=== PATIENT | female | born 1955 | race African-American/Black ===

== ENCOUNTER 2021-11-18 08:34 | Emergency (ER) | payer MEDICAID ==
[2021-11-18 09:33] LABS: Bacteria/HPF None Seen HPF (None Seen); Bilirubin Negative (Negative); Blood, Urine Negative (Negative); Clarity Clear (Clear); Glucose, Urine (Dipstick) Normal (Negative); Ketone, Urine Negative (Negative); Leukocyte 75 Leu/uL (Negative); Nitrite Negative (Negative); Protein, Urine (Dipstick) Negative (Neg-Trace); RBC/HPF 0-3 HPF (0-3); Specific Gravity, Urine 1.012 (1.002-1.036); Squamous Epithelial 0-3 HPF (0-3); Urobilinogen Normal mg/dL (Less than 2); WBC/HPF 0-3 HPF (0-3)
[2021-11-18 09:35] LABS: #Eosinphils 0.1 thou/uL (0.0-0.7); #Lymphocytes 1.7 thou/uL (1.20-3.40); #Monocytes 0.5 thou/uL (0.11-0.59); #Neutrophils 1.5 thou/uL (1.40-6.50); %Basophils 0.9 % (0.0-1.0); %Eosinophils 2.1 % (0.0-10.0); %Lymphocytes 45.7 % (21.0-51.0); %Monocytes 12.1 % (0.0-10.0); %Neutrophils 39.3 % (42.0-75.0); Hemoglobin 12.3 g/dL (12.0-16.0); Mean Corpuscular HGB CONC 33.9 g/dL (32.0-36.0); Mean Corpuscular Hemoglobin 34.1 pg (27.0-31.0); Mean Platelet Volume 8.2 fL (7.4-10.4); Platelet Count 173 thou/uL (130-400); RBC Distribution Width 12.9 % (11.5-14.5); Red Blood Cell (RBC) Count 3.62 mill/uL (4.20-5.40); White Blood Cell (WBC) Count 3.7 thou/uL (4.8-10.8)
[2021-11-18 09:54] LABS: ALT (SGPT) 12 U/L (8-55); AST (SGOT) 26 U/L (5-34); Albumin 4.3 g/dL (3.4-4.8); Alkaline Phosphatase 98 U/L (40-110); Anion Gap 15 mmol/L (10-20); BUN (Urea Nitrogen) 29 mg/dL (9.8-20.1); Bilirubin, Total 0.3 mg/dL (0.2-1.2); Calc. Creatinine Clearance 0 mL/min (70-130); Calcium 9.4 mg/dL (7.8-10.44); Carbon Dioxide 26 mmol/L (23-31); Chloride 101 mmol/L (98-107); Globulin 4.5 g/dL (2.4-3.5); Glucose 92 mg/dL (80-115); Lipase 46 U/L (8-78); Potassium 3.9 mmol/L (3.5-5.1); Protein, Total 8.8 g/dL (5.8-8.1); Sodium 138 mmol/L (136-145)
== END 2021-11-18 12:24 | disposition home or self-care (01) ==
LOC: ERS 08:34
DX: R10.9 Unspecified abdominal pain (principal); E78.5 Hyperlipidemia, unspecified; E78.00 Pure hypercholesterolemia, unspecified; I10 Essential (primary) hypertension; Z79.899 Other long term (current) drug therapy
CPT/HCPCS: 36415; 74176; 80053; 81003; 81015; 83690; 85025; 87086

== ENCOUNTER 2022-08-30 11:10 | Emergency (ER) | payer OTHER, MEDICAID ==
[2022-08-30] MEDS ORDERED: methylPREDNISolone Sod Succ 40 MG VIAL ONE (15:20)
== END 2022-08-30 15:43 | disposition home or self-care (01) ==
LOC: ERS 11:10
DX: M17.0 Bilateral primary osteoarthritis of knee (principal); E78.00 Pure hypercholesterolemia, unspecified; I10 Essential (primary) hypertension; Y93.01 Activity, walking, marching and hiking; Z79.899 Other long term (current) drug therapy
CPT/HCPCS: 96372; J2920

== ENCOUNTER 2022-09-01 11:51 | Outpatient (CLI) | payer OTHER | END 2022-09-01 11:52 | disposition home or self-care (01) | LOC: BICRAD 11:51 | PROVIDERS: ATTEND Family Medicine | DX: M54.50 Low back pain, unspecified (principal); M16.12 Unilateral primary osteoarthritis, left hip; M47.816 Spondylosis without myelopathy or radiculopathy, lumbar region | CPT/HCPCS: 72100 ==

== ENCOUNTER 2023-01-25 10:03 | Outpatient (CLI) | payer OTHER, MEDICAID | END 2023-01-25 10:04 | disposition home or self-care (01) | LOC: BICMRI 10:03 | PROVIDERS: ATTEND Psychiatry & Neurology Neurology | DX: G40.409 Other generalized epilepsy and epileptic syndromes, not intractable, without status epilepticus (principal) | CPT/HCPCS: 70553 ==

== ENCOUNTER 2023-04-26 09:19 | Outpatient (CLI) | payer OTHER, MEDICAID | END 2023-04-26 09:20 | disposition home or self-care (01) | LOC: BICMAMMO 09:19 | PROVIDERS: ATTEND Family Medicine | DX: Z12.31 Encounter for screening mammogram for malignant neoplasm of breast (principal) | CPT/HCPCS: 77063; 77067 ==

== ENCOUNTER 2025-06-03 14:55 | Inpatient (IN) | payer OTHER ==
[2025-06-03] MEDS ORDERED: Furosemide 40 MG TAB ONE (16:28)
[2025-06-03 16:45] LABS: #Basophils Less than 0.03 10x3/uL (0.0-0.2); #Eosinophils Less than 0.03 10x3/uL (0.0-0.7); #Monocytes 1.00 10x3/uL (0.11-0.59); #Neutrophils 4.32 10x3/uL (1.40-6.50); %Basophils 0.0 % (0.0-1.0); %Eosinophils 0.2 % (0.0-10.0); %Lymphocytes 15.5 % (21.0-51.0); %Monocytes 15.8 % (0.0-10.0); %Neutrophils 68.0 % (42.0-75.0); Hematocrit 13.5 % (36.0-47.0); Hemoglobin 3.5 g/dL (12.0-16.0); Mean Corpuscular Hemoglobin 14.8 pg (27.0-31.0); Mean Corpuscular Volume 57.0 fL (78.0-98.0); Platelet Count 305 10x3/uL (130-400); Red Blood Cell (RBC) Count 2.37 mill/uL (4.20-5.40); White Blood Cell (WBC) Count 6.34 10x3/uL (4.8-10.8)
[2025-06-03 16:54] LABS: ALT (SGPT) 369 U/L (Less than 34); AST (SGOT) 683 U/L (11-34); Albumin 2.9 g/dL (3.1-4.5); Alkaline Phosphatase 288 U/L (40-110); Anion Gap 17 mmol/L (10-20); BUN (Urea Nitrogen) 29 mg/dL (9.8-20.1); Bilirubin, Total 2.2 mg/dL (0.3-1.2); Calc. Creatinine Clearance 0 mL/min (70-130); Calcium 8.5 mg/dL (7.8-10.44); Carbon Dioxide 17 mmol/L (23-31); Chloride 110 mmol/L (98-107); Globulin 4.5 g/dL (2.4-3.5); Glucose 99 mg/dL (83-110); Potassium 4.3 mmol/L (3.5-5.1); Sodium 140 mmol/L (136-145)
[2025-06-03 17:10] LABS: INR-International Normal Ratio 1.9; PTT 36.6 sec (22.9-36.1); Prothrombin Time 21.6 sec (12.0-14.7)
[2025-06-03 17:11] LABS: Anisocytosis MARKED = >30 cells HPF (0-5); Burr Cells MODERATE= 6-15 cells HPF (0-1); Macrocytosis MODERATE=16-30 cells HPF (0-5); Platelet Adequacy Comment Platelets Normal; Poikilocytosis SLIGHT = 6-15 cells HPF (0-5); Polychromasia SLIGHT = 2-3 cells HPF (0-2); Reflex for Review?? YES; Target Cells MODERATE= 6-15 cells HPF (0-1)
[2025-06-03 17:23] LABS: Iron 17 ug/dL (50-170); Iron Binding Capacity, Total 340 mcg/dL (265-497)
[2025-06-03 20:46] LABS: Carbamazepine-Tegretol 11.9 ug/mL (4.0-12.0)
[2025-06-03 22:24] LABS: Hep A IgM AB NONREACTIVE (NonReactive); Hep A IgM S/CO 0.24 S/CO (0-0.79); Hep B Core IgM Index 0.10 S/CO (0-0.79); Hep B Surf Ag NONREACTIVE S/CO (NonReactive); Hep C IgG Ab NONREACTIVE S/CO (NonReactive); Hep C Index 0.23 S/CO (0-0.79)
[2025-06-04 09:29] LABS: #Basophils Less than 0.03 10x3/uL (0.0-0.2); #Eosinophils Less than 0.03 10x3/uL (0.0-0.7); #Monocytes 0.96 10x3/uL (0.11-0.59); #Neutrophils 4.20 10x3/uL (1.40-6.50); %Basophils 0.3 % (0.0-1.0); %Eosinophils 0.0 % (0.0-10.0); %Lymphocytes 13.3 % (21.0-51.0); %Monocytes 16.0 % (0.0-10.0); %Neutrophils 69.9 % (42.0-75.0); Hematocrit 23.6 % (36.0-47.0); Hemoglobin 7.2 g/dL (12.0-16.0); Mean Corpuscular Hemoglobin 20.2 pg (27.0-31.0); Mean Corpuscular Volume 66.3 fL (78.0-98.0); Platelet Count 257 10x3/uL (130-400); Red Blood Cell (RBC) Count 3.56 mill/uL (4.20-5.40); White Blood Cell (WBC) Count 6.01 10x3/uL (4.8-10.8)
[2025-06-04 09:37] LABS: ALT (SGPT) 369 U/L (Less than 34); AST (SGOT) 692 U/L (11-34); Albumin 2.6 g/dL (3.1-4.5); Alkaline Phosphatase 267 U/L (40-110); Anion Gap 15 mmol/L (10-20); BUN (Urea Nitrogen) 28 mg/dL (9.8-20.1); Bilirubin, Total 3.1 mg/dL (0.3-1.2); Calc. Creatinine Clearance 20 mL/min (70-130); Calcium 8.2 mg/dL (7.8-10.44); Carbon Dioxide 17 mmol/L (23-31); Chloride 112 mmol/L (98-107); Globulin 4.0 g/dL (2.4-3.5); Glucose 78 mg/dL (83-110); Potassium 3.7 mmol/L (3.5-5.1); Sodium 140 mmol/L (136-145)
[2025-06-04 10:03] LABS: Burr Cells MODERATE= 6-15 cells HPF (0-1); Microcytosis MODERATE=15-30 cells HPF (0-5); Platelet Adequacy Comment Platelets Normal; Poikilocytosis MARKED = >30 cells HPF (0-5); Polychromasia MARKED = >4 cells HPF (0-2); Reflex for Review?? YES; Schistocytes MODERATE= 6-15 cells HPF (0-1); Spherocytes SLIGHT = 1-5 cells HPF (None Seen)
[2025-06-04 16:21] LABS: Hematocrit 25.5 % (36.0-47.0); Hemoglobin 7.6 g/dL (12.0-16.0)
[2025-06-04 19:26] LABS: Bacteria/HPF None Seen HPF (None Seen); CAUTI Indications for Culture Pelvic or flank pain; Glucose, Urine (Dipstick) Normal (Negative); Leukocyte Negative Leu/uL (Negative); Protein, Urine (Dipstick) 50 mg/dL (Neg-Trace); RBC/HPF 0-3 HPF (0-3); Specific Gravity, Urine 1.011 (1.002-1.036)
[2025-06-04 19:38] LABS: Urine Culture Reflex No No
[2025-06-04 23:55] LABS: Hematocrit 31.4 % (36.0-47.0); Hemoglobin 9.7 g/dL (12.0-16.0)
[2025-06-05 01:27] LABS: Hematocrit 29.9 % (36.0-47.0); Hemoglobin 9.3 g/dL (12.0-16.0)
[2025-06-05 04:46] LABS: #Basophils 0.04 10x3/uL (0.0-0.2); #Eosinophils Less than 0.03 10x3/uL (0.0-0.7); #Monocytes 1.05 10x3/uL (0.11-0.59); #Neutrophils 5.45 10x3/uL (1.40-6.50); %Basophils 0.5 % (0.0-1.0); %Eosinophils 0.1 % (0.0-10.0); %Lymphocytes 12.4 % (21.0-51.0); %Monocytes 14.0 % (0.0-10.0); %Neutrophils 72.6 % (42.0-75.0); Hematocrit 29.1 % (36.0-47.0); Hemoglobin 9.3 g/dL (12.0-16.0); Mean Corpuscular Hemoglobin 22.0 pg (27.0-31.0); Mean Corpuscular Volume 68.8 fL (78.0-98.0); Platelet Count 267 10x3/uL (130-400); Red Blood Cell (RBC) Count 4.23 mill/uL (4.20-5.40); White Blood Cell (WBC) Count 7.51 10x3/uL (4.8-10.8)
[2025-06-05 05:04] LABS: ALT (SGPT) 435 U/L (Less than 34); AST (SGOT) 848 U/L (11-34); Albumin 2.4 g/dL (3.1-4.5); Alkaline Phosphatase 278 U/L (40-110); Anion Gap 15 mmol/L (10-20); BUN (Urea Nitrogen) 30 mg/dL (9.8-20.1); Bilirubin, Total 4.9 mg/dL (0.3-1.2); Calc. Creatinine Clearance 18 mL/min (70-130); Calcium 8.0 mg/dL (7.8-10.44); Carbon Dioxide 17 mmol/L (23-31); Chloride 110 mmol/L (98-107); Globulin 3.9 g/dL (2.4-3.5); Glucose 64 mg/dL (83-110); Potassium 3.6 mmol/L (3.5-5.1); Sodium 138 mmol/L (136-145)
[2025-06-05] MEDS: Furosemide 40 MG (4 mL) VIAL SLOW IVP SCH ×3 (09:21→23:47)
[2025-06-05 09:41] LABS: ALT (SGPT) 492 U/L (Less than 34); AST (SGOT) 964 U/L (11-34); Albumin 2.6 g/dL (3.1-4.5); Alkaline Phosphatase 304 U/L (40-110); Anion Gap 15 mmol/L (10-20); BUN (Urea Nitrogen) 30 mg/dL (9.8-20.1); Bilirubin, Total 5.7 mg/dL (0.3-1.2); Calc. Creatinine Clearance 17 mL/min (70-130); Calcium 8.2 mg/dL (7.8-10.44); Carbon Dioxide 17 mmol/L (23-31); Chloride 109 mmol/L (98-107); Globulin 4.4 g/dL (2.4-3.5); Glucose 126 mg/dL (83-110); Potassium 3.6 mmol/L (3.5-5.1); Sodium 137 mmol/L (136-145)
[2025-06-05 09:53] LABS: INR-International Normal Ratio 2.1; Prothrombin Time 23.4 sec (12.0-14.7)
[2025-06-05] MEDS: Albumin 25% 25 GM (100 mL) BOT IVPB SCH ×2 (11:38→23:32)
[2025-06-05] MEDS: Sodium Ferric Gluconate 250 MG in Sodium Chloride 0.9% 250 ML 250 ML IVPB SCH (11:39)
[2025-06-05 12:06] LABS: INR-International Normal Ratio 2.5; Prothrombin Time 27.2 sec (12.0-14.7)
[2025-06-05 12:07] LABS: Fibrinogen 275 mg/dL (253-463); PTT 34.4 sec (22.9-36.1)
[2025-06-05 12:17] LABS: D-Dimer Test 6.67 mcg/mL (0.27-0.43); Platelet Count 215 10x3/uL (130-400)
[2025-06-05 15:36] LABS: Sodium, Urine 123.0 mmol/L (Not Available); Urea Nitrogen, Random Urine 169.0 mg/dl
[2025-06-05] MEDS: GoLYTELY 4,000 ml Bottle PO SCH (17:22)
[2025-06-05 19:28] LABS: ALT (SGPT) 473 U/L (Less than 34); AST (SGOT) 843 U/L (11-34); Albumin 3.1 g/dL (3.1-4.5); Alkaline Phosphatase 275 U/L (40-110); Anion Gap 15 mmol/L (10-20); BUN (Urea Nitrogen) 29 mg/dL (9.8-20.1); Bilirubin, Total 5.8 mg/dL (0.3-1.2); CK (CPK) 1733 U/L (29-168); Calc. Creatinine Clearance 16 mL/min (70-130); Calcium 8.6 mg/dL (7.8-10.44); Carbon Dioxide 17 mmol/L (23-31); Chloride 109 mmol/L (98-107); Globulin 4.3 g/dL (2.4-3.5); Glucose 108 mg/dL (83-110); Potassium 3.3 mmol/L (3.5-5.1); Sodium 138 mmol/L (136-145)
[2025-06-05] MEDS: Transdermal Patch Removal TOP SCH (23:48)
[2025-06-06 05:56] LABS: ALT (SGPT) 433 U/L (Less than 34); AST (SGOT) 838 U/L (11-34); Albumin 3.0 g/dL (3.1-4.5); Alkaline Phosphatase 239 U/L (40-110); Anion Gap 17 mmol/L (10-20); BUN (Urea Nitrogen) 29 mg/dL (9.8-20.1); Bilirubin, Total 6.9 mg/dL (0.3-1.2); CK (CPK) 1608 U/L (29-168); Calc. Creatinine Clearance 15 mL/min (70-130); Calcium 8.5 mg/dL (7.8-10.44); Carbon Dioxide 19 mmol/L (23-31); Chloride 108 mmol/L (98-107); Globulin 3.5 g/dL (2.4-3.5); Glucose 84 mg/dL (83-110); Potassium 2.9 mmol/L (3.5-5.1); Sodium 141 mmol/L (136-145)
[2025-06-06 05:59] LABS: #Basophils 0.05 10x3/uL (0.0-0.2); #Eosinophils 0.04 10x3/uL (0.0-0.7); #Monocytes 1.32 10x3/uL (0.11-0.59); #Neutrophils 7.40 10x3/uL (1.40-6.50); %Basophils 0.5 % (0.0-1.0); %Eosinophils 0.4 % (0.0-10.0); %Lymphocytes 10.2 % (21.0-51.0); %Monocytes 13.3 % (0.0-10.0); %Neutrophils 74.3 % (42.0-75.0); Hematocrit 28.1 % (36.0-47.0); Hemoglobin 9.0 g/dL (12.0-16.0); Mean Corpuscular Hemoglobin 21.6 pg (27.0-31.0); Mean Corpuscular Volume 67.5 fL (78.0-98.0); Platelet Count 211 10x3/uL (130-400); Red Blood Cell (RBC) Count 4.16 mill/uL (4.20-5.40); White Blood Cell (WBC) Count 9.95 10x3/uL (4.8-10.8)
[2025-06-06 06:16] LABS: INR-International Normal Ratio 2.2; Prothrombin Time 24.4 sec (12.0-14.7)
[2025-06-06] MEDS: Potassium Chloride 20 MEQ in Premix 1 BAG IVPB SCH (06:19)
[2025-06-06 06:47] LABS: Magnesium 2.0 mg/dL (1.6-2.6); Uric Acid 6.1 mg/dL (2.5-6.2)
[2025-06-06] MEDS: Sodium Ferric Gluconate 250 MG in Sodium Chloride 0.9% 250 ML 250 ML IVPB SCH (14:31)
[2025-06-06] MEDS: Potassium Phosphate 30 MMOL in Sodium Chloride 0.9% 250 ML 250 ML IVPB SCH (14:41)
[2025-06-06] MEDS: Furosemide 40 MG (4 mL) VIAL SLOW IVP SCH (16:15)
[2025-06-06 17:11] LABS: Anion Gap 15 mmol/L (10-20); BUN (Urea Nitrogen) 28 mg/dL (9.8-20.1); Calc. Creatinine Clearance 16 mL/min (70-130); Calcium 8.3 mg/dL (7.8-10.44); Carbon Dioxide 21 mmol/L (23-31); Chloride 105 mmol/L (98-107); Glucose 133 mg/dL (83-110); Potassium 3.2 mmol/L (3.5-5.1); Sodium 138 mmol/L (136-145)
[2025-06-06] MEDS: Benzonatate 100 MG CAP PO PRN (19:20)
[2025-06-07 05:30] LABS: #Basophils 0.03 10x3/uL (0.0-0.2); #Eosinophils 0.04 10x3/uL (0.0-0.7); #Monocytes 1.54 10x3/uL (0.11-0.59); #Neutrophils 8.90 10x3/uL (1.40-6.50); %Basophils 0.3 % (0.0-1.0); %Eosinophils 0.3 % (0.0-10.0); %Lymphocytes 10.9 % (21.0-51.0); %Monocytes 13.0 % (0.0-10.0); %Neutrophils 74.8 % (42.0-75.0); Hematocrit 28.0 % (36.0-47.0); Hemoglobin 8.7 g/dL (12.0-16.0); Mean Corpuscular Hemoglobin 21.8 pg (27.0-31.0); Mean Corpuscular Volume 70.2 fL (78.0-98.0); Platelet Count 217 10x3/uL (130-400); Red Blood Cell (RBC) Count 3.99 mill/uL (4.20-5.40); White Blood Cell (WBC) Count 11.89 10x3/uL (4.8-10.8)
[2025-06-07 05:38] LABS: INR-International Normal Ratio 2.0; PTT 53.9 sec (22.9-36.1); Prothrombin Time 22.4 sec (12.0-14.7)
[2025-06-07 05:44] LABS: ALT (SGPT) 449 U/L (Less than 34); AST (SGOT) 843 U/L (11-34); Albumin 2.9 g/dL (3.1-4.5); Alkaline Phosphatase 218 U/L (40-110); Anion Gap 14 mmol/L (10-20); BUN (Urea Nitrogen) 25 mg/dL (9.8-20.1); Bilirubin, Total 8.7 mg/dL (0.3-1.2); Calc. Creatinine Clearance 16 mL/min (70-130); Calcium 8.2 mg/dL (7.8-10.44); Carbon Dioxide 23 mmol/L (23-31); Chloride 105 mmol/L (98-107); Globulin 3.3 g/dL (2.4-3.5); Glucose 100 mg/dL (83-110); Potassium 3.5 mmol/L (3.5-5.1); Sodium 138 mmol/L (136-145)
[2025-06-07] MEDS: Albumin 25% 25 GM (100 mL) BOT IVPB SCH (07:09)
[2025-06-07] MEDS: Potassium Bicarbonate/Cit Ac 20 MEQ TAB PO SCH (07:09)
[2025-06-07 07:21] LABS: CK (CPK) 1374 U/L (29-168); Magnesium 1.9 mg/dL (1.6-2.6)
[2025-06-07 11:26] LABS: Bilirubin, Direct 6.0 mg/dL (0.1-0.3); Bilirubin, Total 7.9 mg/dL (0.3-1.2)
[2025-06-07] MEDS: Furosemide 20 MG (2 mL) VIAL SLOW IVP SCH (18:02)
[2025-06-07] MEDS: Melatonin 3 MG TAB PO PRN (20:02)
[2025-06-08 02:48] LABS: Actual Bicarbonate (HCO3a) 19.4 mEq/L (22-28); Base Excess (BEa) -2.3 mEq/L (-2.0 to +3.0); Calcium, Ionized (arterial) 1.11 mmol/L (1.12-1.30); Hematocrit-ABG 32 % (36.0-47.0); Hemoglobin (Hb) 10.9 g/dL (12.0-16.0); Potassium - ABG Lab 3.15 mmol/L (3.70-5.30); pH, Arterial 7.516 (7.35-7.45)
[2025-06-08 02:50] LABS: Puncture Site Right Radial artery
[2025-06-08] MEDS: dilTIAZem 25 MG/5 ML VIAL SLOW IVP SCH (03:20)
[2025-06-08 05:34] LABS: Actual Bicarbonate (HCO3a) 20.6 mEq/L (22-28); Base Excess (BEa) -2.4 mEq/L (-2.0 to +3.0); CO2 Tension 29.7 mmHg (35.0-45.0); Calcium, Ionized (arterial) 1.11 mmol/L (1.12-1.30); Hematocrit-ABG 31 % (36.0-47.0); Hemoglobin (Hb) 10.6 g/dL (12.0-16.0); O2 Tension (PaO2), arterial 85.9 mmHg (> 70.0); Potassium - ABG Lab 3.11 mmol/L (3.70-5.30); pH, Arterial 7.459 (7.35-7.45)
[2025-06-08 05:36] LABS: Puncture Site Right Brachial art
[2025-06-08 05:37] LABS: ALV-art Gradient 162.175 mmHg (0-20)
[2025-06-08 06:47] LABS: #Basophils Less than 0.03 10x3/uL (0.0-0.2); #Eosinophils Less than 0.03 10x3/uL (0.0-0.7); #Monocytes 1.41 10x3/uL (0.11-0.59); #Neutrophils 12.46 10x3/uL (1.40-6.50); %Basophils 0.1 % (0.0-1.0); %Eosinophils 0.1 % (0.0-10.0); %Lymphocytes 5.2 % (21.0-51.0); %Monocytes 9.5 % (0.0-10.0); %Neutrophils 84.4 % (42.0-75.0); Hematocrit 29.5 % (36.0-47.0); Hemoglobin 9.4 g/dL (12.0-16.0); Mean Corpuscular Hemoglobin 22.2 pg (27.0-31.0); Mean Corpuscular Volume 69.6 fL (78.0-98.0); Platelet Count 177 10x3/uL (130-400); Red Blood Cell (RBC) Count 4.24 mill/uL (4.20-5.40); White Blood Cell (WBC) Count 14.78 10x3/uL (4.8-10.8)
[2025-06-08 06:59] LABS: ALT (SGPT) 400 U/L (Less than 34); AST (SGOT) 625 U/L (11-34); Albumin 3.2 g/dL (3.1-4.5); Alkaline Phosphatase 198 U/L (40-110); Anion Gap 14 mmol/L (10-20); BUN (Urea Nitrogen) 23 mg/dL (9.8-20.1); Bilirubin, Total 9.8 mg/dL (0.3-1.2); CK (CPK) 1290 U/L (29-168); Calc. Creatinine Clearance 17 mL/min (70-130); Calcium 8.6 mg/dL (7.8-10.44); Carbon Dioxide 20 mmol/L (23-31); Chloride 105 mmol/L (98-107); Globulin 3.4 g/dL (2.4-3.5); Glucose 100 mg/dL (83-110); Magnesium 1.8 mg/dL (1.6-2.6); Potassium 3.1 mmol/L (3.5-5.1); Sodium 136 mmol/L (136-145)
[2025-06-08 07:01] LABS: INR-International Normal Ratio 1.9; Prothrombin Time 22.3 sec (12.0-14.7)
[2025-06-08 07:02] LABS: PTT 50.7 sec (22.9-36.1)
[2025-06-08 07:53] LABS: Anisocytosis MARKED = >30 cells HPF (0-5); Burr Cells MODERATE= 6-15 cells HPF (0-1); Macrocytosis MODERATE=16-30 cells HPF (0-5); Microcytosis SLIGHT = 6-15 cells HPF (0-5); Ovalocytes SLIGHT = 2-5 cells HPF (0-1); Platelet Adequacy Comment Platelets Normal; Poikilocytosis MODERATE=16-30 cells HPF (0-5); Polychromasia MODERATE = 3-4 cells HPF (0-2); Schistocytes MODERATE= 6-15 cells HPF (0-1); Target Cells SLIGHT = 2-5 cells HPF (0-1)
[2025-06-08] MEDS: Amiodarone 150 MG, Admixture Fee 1 EACH in Dextrose 5% in Water 100 ML IVPB SCH (09:48)
[2025-06-08] MEDS: Potassium Bicarbonate/Cit Ac 20 MEQ TAB PO SCH (09:59)
[2025-06-08] MEDS: Bumetanide 1 MG/4 ML VIAL IVP SCH (09:59)
[2025-06-08] MEDS: Spironolactone 25 MG TAB PO SCH (10:00)
[2025-06-08] MEDS: Magnesium Oxide 400 MG TAB PO SCH (10:00)
[2025-06-08 13:38] LABS: Kappa Lambda Light Chain Ratio 0.95 (0.26-1.65)
[2025-06-08] MEDS: Pantoprazole 40 MG VIAL IVP SCH (14:57)
[2025-06-08 15:38] LABS: Hemoglobin A2 2.2 % (1.8-3.2); Hemoglobin F 0 % (0.0-2.0); Hemoglobin S 0.0 % (0.0)
[2025-06-09 04:45] LABS: #Basophils Less than 0.03 10x3/uL (0.0-0.2); #Eosinophils Less than 0.03 10x3/uL (0.0-0.7); #Monocytes 1.55 10x3/uL (0.11-0.59); #Neutrophils 11.20 10x3/uL (1.40-6.50); %Basophils 0.1 % (0.0-1.0); %Eosinophils 0.0 % (0.0-10.0); %Lymphocytes 7.2 % (21.0-51.0); %Monocytes 11.2 % (0.0-10.0); %Neutrophils 80.9 % (42.0-75.0); Hematocrit 29.9 % (36.0-47.0); Hemoglobin 9.6 g/dL (12.0-16.0); Mean Corpuscular Hemoglobin 22.4 pg (27.0-31.0); Mean Corpuscular Volume 69.9 fL (78.0-98.0); Platelet Count 194 10x3/uL (130-400); Red Blood Cell (RBC) Count 4.28 mill/uL (4.20-5.40); White Blood Cell (WBC) Count 13.85 10x3/uL (4.8-10.8)
[2025-06-09 04:47] LABS: ALT (SGPT) 337 U/L (Less than 34); AST (SGOT) 488 U/L (11-34); Albumin 2.7 g/dL (3.1-4.5); Alkaline Phosphatase 170 U/L (40-110); Anion Gap 37 mmol/L (10-20); BUN (Urea Nitrogen) 23 mg/dL (9.8-20.1); Bilirubin, Total 11.0 mg/dL (0.3-1.2); Calc. Creatinine Clearance 18 mL/min (70-130); Calcium 7.9 mg/dL (7.8-10.44); Carbon Dioxide 19 mmol/L (23-31); Chloride 96 mmol/L (98-107); Globulin 3.6 g/dL (2.4-3.5); Glucose 107 mg/dL (83-110); Potassium 4.5 mmol/L (3.5-5.1); Sodium 147 mmol/L (136-145)
[2025-06-09 06:03] LABS: INR-International Normal Ratio 1.6; PTT 49.5 sec (22.9-36.1); Prothrombin Time 19.6 sec (12.0-14.7)
[2025-06-09 08:29] LABS: CK (CPK) 648 U/L (29-168); Magnesium 2.1 mg/dL (1.6-2.6)
[2025-06-09] MEDS: Amiodarone 200 MG TAB PO SCH (10:00)
[2025-06-09] MEDS: Amiodarone 150 MG, Admixture Fee 1 EACH in Dextrose 5% in Water 100 ML IVPB SCH (10:29)
[2025-06-09] MEDS: Sodium Bicarbonate Tab 325 MG TAB PO SCH (10:36)
[2025-06-09] MEDS: Pantoprazole 40 MG VIAL IVP SCH (10:37)
[2025-06-09 11:46] LABS: ANA Symphony (Qualitative) Equivocal: See Note (Negative); ANA Symphony (Quantitative) 0.8 Ratio (< 0.7 Negative); dsDNA IgG Antibody 25.0 IU/mL (<10 Negative)
[2025-06-09 12:07] LABS: ALT (SGPT) 346 U/L (Less than 34); AST (SGOT) 432 U/L (11-34); Albumin 3.0 g/dL (3.1-4.5); Alkaline Phosphatase 196 U/L (40-110); Anion Gap 16 mmol/L (10-20); BUN (Urea Nitrogen) 25 mg/dL (9.8-20.1); Bilirubin, Direct 8.5 mg/dL (0.1-0.3); Bilirubin, Total 11.5 mg/dL (0.3-1.2); Calc. Creatinine Clearance 17 mL/min (70-130); Calcium 8.7 mg/dL (7.8-10.44); Carbon Dioxide 21 mmol/L (23-31); Chloride 102 mmol/L (98-107); Globulin 4.0 g/dL (2.4-3.5); Glucose 125 mg/dL (83-110); Potassium 4.3 mmol/L (3.5-5.1); Sodium 135 mmol/L (136-145)
[2025-06-09] MEDS: Bumetanide 1 MG/4 ML VIAL IVP SCH (14:28)
[2025-06-09 16:14] LABS: A/G Ratio 0.7 (0.7-1.7); Albumin 2.8 g/dL (2.9-4.4); Alpha 1 0.3 g/dL (0.0-0.4); Alpha 2 0.5 g/dL (0.4-1.0); Beta 0.9 g/dL (0.7-1.3); Gamma 2.3 g/dL (0.4-1.8); Globulin, Total 4.0 g/dL (2.2-3.9); M-Spike Not Observed g/dL (Not Observed); Protein Electrophoresis Intrp Note: (.)
[2025-06-10 04:50] LABS: #Basophils Less than 0.03 10x3/uL (0.0-0.2); #Eosinophils 0.03 10x3/uL (0.0-0.7); #Monocytes 1.59 10x3/uL (0.11-0.59); #Neutrophils 9.75 10x3/uL (1.40-6.50); %Basophils 0.2 % (0.0-1.0); %Eosinophils 0.2 % (0.0-10.0); %Lymphocytes 9.9 % (21.0-51.0); %Monocytes 12.4 % (0.0-10.0); %Neutrophils 76.1 % (42.0-75.0); Hematocrit 29.8 % (36.0-47.0); Hemoglobin 9.2 g/dL (12.0-16.0); Mean Corpuscular Hemoglobin 22.5 pg (27.0-31.0); Mean Corpuscular Volume 72.9 fL (78.0-98.0); Platelet Count 137 10x3/uL (130-400); Red Blood Cell (RBC) Count 4.09 mill/uL (4.20-5.40); White Blood Cell (WBC) Count 12.82 10x3/uL (4.8-10.8)
[2025-06-10 05:01] LABS: INR-International Normal Ratio 1.7; PTT 53.3 sec (22.9-36.1); Prothrombin Time 20.4 sec (12.0-14.7)
[2025-06-10 05:03] LABS: ALT (SGPT) 270 U/L (Less than 34); AST (SGOT) 287 U/L (11-34); Albumin 2.6 g/dL (3.1-4.5); Alkaline Phosphatase 175 U/L (40-110); Anion Gap 16 mmol/L (10-20); BUN (Urea Nitrogen) 30 mg/dL (9.8-20.1); Bilirubin, Total 10.9 mg/dL (0.3-1.2); CK (CPK) 391 U/L (29-168); Calc. Creatinine Clearance 16 mL/min (70-130); Calcium 8.6 mg/dL (7.8-10.44); Carbon Dioxide 24 mmol/L (23-31); Chloride 102 mmol/L (98-107); Globulin 3.9 g/dL (2.4-3.5); Glucose 105 mg/dL (83-110); Potassium 4.1 mmol/L (3.5-5.1); Sodium 138 mmol/L (136-145)
[2025-06-10] MEDS ORDERED: Isosorbide Mononitrate 60 MG ER.TAB PO SCH (09:00)
[2025-06-10] MEDS: Isosorbide Mononitrate 30 MG ER.TAB.S PO SCH (09:58)
[2025-06-11 05:07] VITALS: BMI 20.7
[2025-06-11 05:19] LABS: INR-International Normal Ratio 1.4; PTT 51.5 sec (22.9-36.1); Prothrombin Time 17.6 sec (12.0-14.7)
[2025-06-11 05:31] LABS: ALT (SGPT) 253 U/L (Less than 34); AST (SGOT) 263 U/L (11-34); Albumin 2.7 g/dL (3.1-4.5); Alkaline Phosphatase 183 U/L (40-110); Anion Gap 16 mmol/L (10-20); BUN (Urea Nitrogen) 27 mg/dL (9.8-20.1); Bilirubin, Total 9.4 mg/dL (0.3-1.2); Calc. Creatinine Clearance 18 mL/min (70-130); Calcium 8.8 mg/dL (7.8-10.44); Carbon Dioxide 24 mmol/L (23-31); Chloride 102 mmol/L (98-107); Globulin 4.3 g/dL (2.4-3.5); Glucose 86 mg/dL (83-110); Potassium 3.7 mmol/L (3.5-5.1); Sodium 138 mmol/L (136-145)
[2025-06-11 05:47] LABS: Anisocytosis SLIGHT = 6-15 cells HPF (0-5); Microcytosis SLIGHT = 6-15 cells HPF (0-5); Platelet Adequacy Comment Platelets Normal; Poikilocytosis SLIGHT = 6-15 cells HPF (0-5); Polychromasia SLIGHT = 2-3 cells HPF (0-2); Target Cells SLIGHT = 2-5 cells HPF (0-1)
[2025-06-11 05:48] LABS: Hematocrit 30.8 % (36.0-47.0); Hemoglobin 9.4 g/dL (12.0-16.0); Mean Corpuscular Hemoglobin 23.0 pg (27.0-31.0); Mean Corpuscular Volume 75.3 fL (78.0-98.0); Platelet Count 137 10x3/uL (130-400); Red Blood Cell (RBC) Count 4.09 mill/uL (4.20-5.40); White Blood Cell (WBC) Count 10.27 10x3/uL (4.8-10.8)
[2025-06-11] MEDS: Pantoprazole 40 MG DR.TAB PO SCH (08:31)
[2025-06-11] MEDS: Spironolactone 25 MG TAB PO SCH (09:42)
[2025-06-11] MEDS: Sodium Ferric Gluconate 250 MG in Sodium Chloride 0.9% 250 ML 250 ML IVPB SCH (13:35)
[2025-06-11] MEDS: Acetaminophen 325 MG TAB PO SCH (23:13)
[2025-06-12 06:37] LABS: Hematocrit 28.6 % (36.0-47.0); Hemoglobin 9.0 g/dL (12.0-16.0); Mean Corpuscular Hemoglobin 23.7 pg (27.0-31.0); Mean Corpuscular Volume 75.3 fL (78.0-98.0); Platelet Count 126 10x3/uL (130-400); Red Blood Cell (RBC) Count 3.80 mill/uL (4.20-5.40); White Blood Cell (WBC) Count 10.62 10x3/uL (4.8-10.8)
[2025-06-12 06:40] LABS: INR-International Normal Ratio 1.4; Prothrombin Time 17.7 sec (12.0-14.7)
[2025-06-12 06:41] LABS: ALT (SGPT) 219 U/L (Less than 34); AST (SGOT) 256 U/L (11-34); Albumin 2.5 g/dL (3.1-4.5); Alkaline Phosphatase 165 U/L (40-110); Anion Gap 13 mmol/L (10-20); BUN (Urea Nitrogen) 26 mg/dL (9.8-20.1); Bilirubin, Total 5.6 mg/dL (0.3-1.2); CK (CPK) 1412 U/L (29-168); Calc. Creatinine Clearance 20 mL/min (70-130); Calcium 8.6 mg/dL (7.8-10.44); Carbon Dioxide 23 mmol/L (23-31); Chloride 104 mmol/L (98-107); Globulin 4.0 g/dL (2.4-3.5); Glucose 85 mg/dL (83-110); PTT 49.9 sec (22.9-36.1); Potassium 3.0 mmol/L (3.5-5.1); Sodium 137 mmol/L (136-145)
[2025-06-12 07:00] LABS: Anisocytosis SLIGHT = 6-15 cells HPF (0-5); Microcytosis SLIGHT = 6-15 cells HPF (0-5); Nucleated RBC (Manual Ct) 1 % (0); Platelet Adequacy Comment Significant Decrease; Poikilocytosis SLIGHT = 6-15 cells HPF (0-5); Polychromasia SLIGHT = 2-3 cells HPF (0-2); Smudge Cells 6.0 %; Target Cells SLIGHT = 2-5 cells HPF (0-1)
[2025-06-12 08:54] LABS: Magnesium 2.1 mg/dL (1.6-2.6)
[2025-06-12] MEDS ORDERED: Spironolactone 25 MG TAB PO SCH (09:00)
[2025-06-12] MEDS: Albumin 25% 25 GM (100 mL) BOT IVPB SCH (09:13)
[2025-06-12] MEDS: Spironolactone 25 MG TAB PO SCH (09:16)
[2025-06-12] MEDS: Isosorbide Mononitrate 60 MG ER.TAB PO SCH (09:16)
[2025-06-12] MEDS: Carvedilol 6.25 MG TAB PO SCH ×2 (10:58→16:31)
[2025-06-12] MEDS: Amiodarone 200 MG TAB PO SCH (21:37)
[2025-06-13 00:08] VITALS: BMI 18.2
[2025-06-13 05:41] LABS: INR-International Normal Ratio 1.4; PTT 44.4 sec (22.9-36.1); Prothrombin Time 17.0 sec (12.0-14.7)
[2025-06-13 05:43] LABS: Hematocrit 31.5 % (36.0-47.0); Hemoglobin 9.8 g/dL (12.0-16.0); Mean Corpuscular Hemoglobin 23.7 pg (27.0-31.0); Mean Corpuscular Volume 76.1 fL (78.0-98.0); Platelet Count 141 10x3/uL (130-400); Red Blood Cell (RBC) Count 4.14 mill/uL (4.20-5.40); White Blood Cell (WBC) Count 9.95 10x3/uL (4.8-10.8)
[2025-06-13 05:51] LABS: ALT (SGPT) 238 U/L (Less than 34); AST (SGOT) 291 U/L (11-34); Albumin 3.1 g/dL (3.1-4.5); Alkaline Phosphatase 166 U/L (40-110); Anion Gap 18 mmol/L (10-20); BUN (Urea Nitrogen) 23 mg/dL (9.8-20.1); Bilirubin, Total 4.8 mg/dL (0.3-1.2); CK (CPK) 2221 U/L (29-168); Calc. Creatinine Clearance 19 mL/min (70-130); Calcium 9.1 mg/dL (7.8-10.44); Carbon Dioxide 22 mmol/L (23-31); Chloride 103 mmol/L (98-107); Globulin 4.3 g/dL (2.4-3.5); Glucose 80 mg/dL (83-110); Potassium 4.0 mmol/L (3.5-5.1); Sodium 139 mmol/L (136-145)
[2025-06-13 07:01] LABS: Anisocytosis MODERATE=16-30 cells HPF (0-5); Macrocytosis SLIGHT = 6-15 cells HPF (0-5); Nucleated RBC (Manual Ct) 3 % (0); Platelet Adequacy Comment Platelets Normal; Polychromasia SLIGHT = 2-3 cells HPF (0-2); Smudge Cells 15.1 %; Target Cells SLIGHT = 2-5 cells HPF (0-1)
[2025-06-13] MEDS: hydrALAZINE 10 MG TAB PO SCH (09:13)
[2025-06-13] MEDS: Sodium Bicarbonate 50 MEQ in Dextrose 5 %-0.45 % NaCl 1,000 ML IV SCH (09:13)
[2025-06-13] MEDS: FLU (Fluad Triv) 25-26 (65UP)PF 45 MCG/0.5 ML Syringe IM ONE (09:33)
[2025-06-13] MEDS: GoLYTELY 4,000 ml Bottle PO SCH (16:03)
[2025-06-14 05:42] LABS: Hematocrit 28.7 % (36.0-47.0); Hemoglobin 8.9 g/dL (12.0-16.0); Mean Corpuscular Hemoglobin 24.0 pg (27.0-31.0); Mean Corpuscular Volume 77.4 fL (78.0-98.0); Platelet Count 132 10x3/uL (130-400); Red Blood Cell (RBC) Count 3.71 mill/uL (4.20-5.40); White Blood Cell (WBC) Count 7.55 10x3/uL (4.8-10.8)
[2025-06-14 05:46] LABS: INR-International Normal Ratio 1.4; PTT 44.2 sec (22.9-36.1); Prothrombin Time 16.8 sec (12.0-14.7)
[2025-06-14 05:58] LABS: Anion Gap 15 mmol/L (10-20); BUN (Urea Nitrogen) 16 mg/dL (9.8-20.1); Calc. Creatinine Clearance 28 mL/min (70-130); Carbon Dioxide 24 mmol/L (23-31); Chloride 107 mmol/L (98-107); Potassium 3.3 mmol/L (3.5-5.1); Sodium 143 mmol/L (136-145)
[2025-06-14 05:59] LABS: ALT (SGPT) 201 U/L (Less than 34); AST (SGOT) 252 U/L (11-34); Albumin 2.6 g/dL (3.1-4.5); Alkaline Phosphatase 137 U/L (40-110); Bilirubin, Total 3.0 mg/dL (0.3-1.2); CK (CPK) 2045 U/L (29-168); Calcium 8.4 mg/dL (7.8-10.44); Globulin 3.8 g/dL (2.4-3.5); Glucose 91 mg/dL (83-110)
[2025-06-14 06:39] LABS: Anisocytosis SLIGHT = 6-15 cells HPF (0-5); Microcytosis SLIGHT = 6-15 cells HPF (0-5); Nucleated RBC (Manual Ct) 1 % (0); Platelet Adequacy Comment Platelets Normal; Polychromasia SLIGHT = 2-3 cells HPF (0-2); Smudge Cells 11.1 %; Target Cells SLIGHT = 2-5 cells HPF (0-1)
[2025-06-14] MEDS: hydrALAZINE 20 MG/ML VIAL SLOW IVP SCH ×2 (07:51→16:43)
[2025-06-14] MEDS ORDERED: Ketamine In 0.9 % NaCl 50 MG/5 ML SYRINGE ONE (09:40)
[2025-06-14] MEDS ORDERED: Lidocaine 1% PF 5 ML VIAL ONE (09:42)
[2025-06-14] MEDS ORDERED: PROPOFOL 200 MG/20 ML VIAL ONE (09:58)
[2025-06-14] MEDS: Potassium Chloride 40 MEQ in Premix 1 BAG IVPB SCH (11:41)
[2025-06-14] MEDS: Sodium Bicarbonate 50 MEQ in Dextrose 5 %-0.45 % NaCl 1,000 ML IV SCH (11:57)
[2025-06-14] MEDS: Potassium Chloride 20 MEQ in Premix 1 BAG IVPB SCH (11:58)
[2025-06-14 15:56] LABS: Reference Lab Name LABCORP
[2025-06-14 15:58] LABS: Reference Lab Name LABCORP
[2025-06-15 05:29] LABS: ALT (SGPT) 207 U/L (Less than 34); AST (SGOT) 264 U/L (11-34); Albumin 2.7 g/dL (3.1-4.5); Alkaline Phosphatase 131 U/L (40-110); Anion Gap 14 mmol/L (10-20); BUN (Urea Nitrogen) 14 mg/dL (9.8-20.1); Bilirubin, Total 2.7 mg/dL (0.3-1.2); CK (CPK) 2191 U/L (29-168); Calc. Creatinine Clearance 47 mL/min (70-130); Calcium 8.4 mg/dL (7.8-10.44); Carbon Dioxide 24 mmol/L (23-31); Chloride 106 mmol/L (98-107); Globulin 3.9 g/dL (2.4-3.5); Glucose 96 mg/dL (83-110); Potassium 3.3 mmol/L (3.5-5.1); Sodium 141 mmol/L (136-145)
[2025-06-15 05:42] LABS: INR-International Normal Ratio 1.3; Prothrombin Time 16.7 sec (12.0-14.7)
[2025-06-15 05:43] LABS: PTT 43.4 sec (22.9-36.1)
[2025-06-15 05:49] LABS: #Basophils Less than 0.03 10x3/uL (0.0-0.2); #Eosinophils 0.17 10x3/uL (0.0-0.7); #Monocytes 0.92 10x3/uL (0.11-0.59); #Neutrophils 4.46 10x3/uL (1.40-6.50); %Basophils 0.3 % (0.0-1.0); %Eosinophils 2.4 % (0.0-10.0); %Lymphocytes 21.8 % (21.0-51.0); %Monocytes 12.8 % (0.0-10.0); %Neutrophils 61.9 % (42.0-75.0); Hematocrit 30.0 % (36.0-47.0); Hemoglobin 9.3 g/dL (12.0-16.0); Mean Corpuscular Hemoglobin 24.5 pg (27.0-31.0); Mean Corpuscular Volume 78.9 fL (78.0-98.0); Platelet Count 155 10x3/uL (130-400); Red Blood Cell (RBC) Count 3.80 mill/uL (4.20-5.40); White Blood Cell (WBC) Count 7.20 10x3/uL (4.8-10.8)
[2025-06-15] MEDS: Sodium Ferric Gluconate 250 MG in Sodium Chloride 0.9% 250 ML 250 ML IVPB SCH (09:08)
[2025-06-15 09:14] LABS: Magnesium 2.1 mg/dL (1.6-2.6)
[2025-06-15] MEDS: EPOETIN ALFA-EPBX (ESRD) 10,000 UNITS/ML VIAL SC SCH (09:15)
[2025-06-15] MEDS: Albumin 25% 25 GM (100 mL) BOT IVPB SCH (10:01)
[2025-06-15 11:06] LABS: CO2 Tension 24.5 mmHg (35.0-45.0); O2 Tension (PaO2), arterial 51.4 mmHg (> 70.0)
[2025-06-15] MEDS: Potassium Phosphate 30 MMOL in Sodium Chloride 0.9% 250 ML 250 ML IVPB SCH (12:47)
[2025-06-16] MEDS: hydrALAZINE 20 MG/ML VIAL SLOW IVP PRN (06:08)
[2025-06-16 06:38] LABS: Hematocrit 33.2 % (36.0-47.0); Hemoglobin 9.9 g/dL (12.0-16.0); Mean Corpuscular Hemoglobin 24.4 pg (27.0-31.0); Mean Corpuscular Volume 82.0 fL (78.0-98.0); Platelet Count 207 10x3/uL (130-400); Red Blood Cell (RBC) Count 4.05 mill/uL (4.20-5.40); White Blood Cell (WBC) Count 7.61 10x3/uL (4.8-10.8)
[2025-06-16 06:39] LABS: INR-International Normal Ratio 1.3; Prothrombin Time 16.4 sec (12.0-14.7)
[2025-06-16 06:40] LABS: PTT 41.2 sec (22.9-36.1)
[2025-06-16 06:51] LABS: Anisocytosis MODERATE=16-30 cells HPF (0-5); Microcytosis SLIGHT = 6-15 cells HPF (0-5); Nucleated RBC (Manual Ct) 2 % (0); Platelet Adequacy Comment Platelets Normal; Polychromasia MODERATE = 3-4 cells HPF (0-2); Smudge Cells 10.0 %; Target Cells SLIGHT = 2-5 cells HPF (0-1)
[2025-06-16 06:52] LABS: ALT (SGPT) 214 U/L (Less than 34); AST (SGOT) 264 U/L (11-34); Albumin 3.3 g/dL (3.1-4.5); Alkaline Phosphatase 133 U/L (40-110); Anion Gap 16 mmol/L (10-20); BUN (Urea Nitrogen) 12 mg/dL (9.8-20.1); Bilirubin, Total 2.8 mg/dL (0.3-1.2); Calc. Creatinine Clearance 29 mL/min (70-130); Calcium 8.9 mg/dL (7.8-10.44); Carbon Dioxide 21 mmol/L (23-31); Chloride 109 mmol/L (98-107); Globulin 4.2 g/dL (2.4-3.5); Glucose 90 mg/dL (83-110); Potassium 3.9 mmol/L (3.5-5.1); Sodium 142 mmol/L (136-145)
[2025-06-16] MEDS: Carvedilol 6.25 MG TAB PO SCH (08:54)
[2025-06-16 13:25] VITALS: BP 135/64; TEMP 99.1
[2025-06-16] MEDS: Bumetanide 1 MG/4 ML VIAL IVP SCH (13:25)
[2025-06-16 16:38] LABS: CK1-BB 0 % (0); CK2-MB 0 % (0-3); CK3-MM 100 % (97-100); Creatine Kinase Total 1728 U/L (32-182); Macro I 0 % (Not Observed); Macro II 0 % (Not Observed)
== END 2025-06-16 15:00 | disposition short-term general hospital (02) | DRG 377 ==
LOC: ERS 14:55 → 2NO 19:30 → OBSVTOIN 19:30 → IMCU/EMU 06-08 03:46 → 2NO 06-11 15:09
PROVIDERS: ADMIT Family Medicine; ATTEND Family Medicine
PROC: 30233J1 Transfusion of Nonautologous Serum Albumin into Peripheral Vein, Percutaneous Approach (ICD-10-PCS; 2025-06-05)
PROC: 4A133R1 Monitoring of Arterial Saturation, Peripheral, Percutaneous Approach (ICD-10-PCS; 2025-06-08)
PROC: 30233N1 Transfusion of Nonautologous Red Blood Cells into Peripheral Vein, Percutaneous Approach (ICD-10-PCS; 2025-06-08)
PROC: 5A09357 Assistance with Respiratory Ventilation, Less than 24 Consecutive Hours, Continuous Positive Airway Pressure (ICD-10-PCS; 2025-06-08)
PROC: 3E03329 Introduction of Other Anti-infective into Peripheral Vein, Percutaneous Approach (ICD-10-PCS; 2025-06-09)
PROC: 0DJ08ZZ Inspection of Upper Intestinal Tract, Via Natural or Artificial Opening Endoscopic (ICD-10-PCS; principal; 2025-06-14)
DX: K92.2 Gastrointestinal hemorrhage, unspecified (principal); I21.A1 Myocardial infarction type 2; I50.33 Acute on chronic diastolic (congestive) heart failure; K72.00 Acute and subacute hepatic failure without coma; J96.01 Acute respiratory failure with hypoxia; J18.9 Pneumonia, unspecified organism; I13.0 Hypertensive heart and chronic kidney disease with heart failure and stage 1 through stage 4 chronic kidney disease, or unspecified chronic kidney disease; N17.9 Acute kidney failure, unspecified; D62 Acute posthemorrhagic anemia; M62.82 Rhabdomyolysis; E87.21 Acute metabolic acidosis; I08.1 Rheumatic disorders of both mitral and tricuspid valves; E78.5 Hyperlipidemia, unspecified; E78.00 Pure hypercholesterolemia, unspecified; M19.90 Unspecified osteoarthritis, unspecified site; K81.9 Cholecystitis, unspecified; E88.09 Other disorders of plasma-protein metabolism, not elsewhere classified; N18.32 Chronic kidney disease, stage 3b; E87.6 Hypokalemia; I48.0 Paroxysmal atrial fibrillation; I25.10 Atherosclerotic heart disease of native coronary artery without angina pectoris; G40.909 Epilepsy, unspecified, not intractable, without status epilepticus; E80.6 Other disorders of bilirubin metabolism; Z79.899 Other long term (current) drug therapy; Z79.82 Long term (current) use of aspirin; Z98.890 Other specified postprocedural states; Z87.891 Personal history of nicotine dependence; Z51.5 Encounter for palliative care
CPT/HCPCS: 36415; 36416; 36430; 36600; 71045; 74176; 76705; 78226; 80053; 80074; 80156; 81001; 82043; 82247; 82248; 82274; 82550; 82552; 82728; 82805; 82977; 83010; 83021; 83521; 83540; 83550; 83615; 83735; 83880; 84100; 84145; 84155; 84165; 84300; 84484; 84540; 84550; 85014; 85018; 85025; 85046; 85049; 85060; 85300; 85362; 85384; 85610; 85730; 86038; 86160; 86225; 86850; 86900; 86901; 93005; 93010; 93306; 93970; 94640; 94660; 96365; 96375; A4217; A9537; J0282; J0360; J0692; J1250; J1940; J2272; J2470; J2543; J2704; J2916; J3010; J3480; J3490; J7042; J7050; J7070; J7120; P9016; P9047; Q5105